=== PATIENT | male | born 1965 | race Hispanic/Latino ===

== ENCOUNTER → 2019-07-26 | Outpatient (CLI) | payer OTHER ==
[~2019-07-26] MED LIST: IOHEXOL-350 50ML VIAL IV ONE
== END | disposition home or self-care (01) ==
LOC: RAH 13:40
PROVIDERS: ATTEND Nurse Practitioner Family
DX: L02.01 Cutaneous abscess of face (principal); R59.0 Localized enlarged lymph nodes
CPT/HCPCS: 70492; Q9967